=== PATIENT | male | born 1955 | race Caucasian/White ===

== ENCOUNTER → 2024-05-12 14:54 | Outpatient (REF) | payer MEDICARE, SELFPAY | LOC: RAD 14:54 | PROVIDERS: ATTENDING PHYSICIAN Internal Medicine Cardiovascular Disease; FAMILY PHYSICIAN Family Medicine | DX: I71.21 Aneurysm of the ascending aorta, without rupture (principal) | CPT/HCPCS: 71250 ==

== ENCOUNTER → 2024-06-07 08:07 | Outpatient (REF) | payer MEDICARE, SELFPAY | LOC: RCS 08:07 | PROVIDERS: ATTENDING PHYSICIAN Internal Medicine Cardiovascular Disease; FAMILY PHYSICIAN Family Medicine | DX: I71.21 Aneurysm of the ascending aorta, without rupture (principal); I35.1 Nonrheumatic aortic (valve) insufficiency; I35.0 Nonrheumatic aortic (valve) stenosis; I10 Essential (primary) hypertension | CPT/HCPCS: 93306 ==

== ENCOUNTER → 2024-06-25 10:35 | Outpatient (REF) | payer MEDICARE, SELFPAY | LOC: RAD 10:35 | PROVIDERS: ATTENDING PHYSICIAN Internal Medicine Cardiovascular Disease; FAMILY PHYSICIAN Family Medicine | DX: I71.21 Aneurysm of the ascending aorta, without rupture (principal); I70.0 Atherosclerosis of aorta; R09.89 Other specified symptoms and signs involving the circulatory and respiratory systems | CPT/HCPCS: 76770 ==

== ENCOUNTER → 2024-09-08 06:17 | Day surgery (SDC) | payer MEDICARE, SELFPAY ==
[2024-09-08 09:27] LABS: Glucose - Point of Care 126 mg/dl (70-99)
== END ==
LOC: GI 06:17
PROVIDERS: ATTENDING PHYSICIAN Internal Medicine Gastroenterology
DX: Z12.11 Encounter for screening for malignant neoplasm of colon (principal); K64.8 Other hemorrhoids; K57.30 Diverticulosis of large intestine without perforation or abscess without bleeding; D12.3 Benign neoplasm of transverse colon
CPT/HCPCS: 45380; 88305; 82962

== ENCOUNTER → 2024-09-09 12:16 | Outpatient (REF) | payer MEDICARE, SELFPAY | LOC: RAD 12:16 | PROVIDERS: ATTENDING PHYSICIAN Family Medicine | DX: M25.511 Pain in right shoulder (principal) | CPT/HCPCS: 73030 ==

== ENCOUNTER 2024-10-21 15:03 | Outpatient (RCR) | payer MEDICARE, SELFPAY | END 2024-10-21 23:59 | disposition home or self-care (01) | LOC: RPT 15:03 | PROVIDERS: ATTENDING PHYSICIAN Orthopaedic Surgery Hand Surgery; FAMILY PHYSICIAN Family Medicine | DX: S46.811D Strain of other muscles, fascia and tendons at shoulder and upper arm level, right arm, subsequent encounter (principal); Z83.6 Family history of other diseases of the respiratory system | CPT/HCPCS: 97010; 97110; 97140; 97162 ==

== ENCOUNTER 2024-11-20 09:01 | Outpatient (RCR) | payer MEDICARE, SELFPAY | END 2024-11-20 23:59 | disposition home or self-care (01) | LOC: RPT 09:01 | PROVIDERS: ATTENDING PHYSICIAN Orthopaedic Surgery Hand Surgery; FAMILY PHYSICIAN Family Medicine | DX: S46.811D Strain of other muscles, fascia and tendons at shoulder and upper arm level, right arm, subsequent encounter (principal); Z73.6 Limitation of activities due to disability; Z83.6 Family history of other diseases of the respiratory system; M62.81 Muscle weakness (generalized); W01.0XXD Fall on same level from slipping, tripping and stumbling without subsequent striking against object, subsequent encounter | CPT/HCPCS: 97010; 97110; 97140 ==

== ENCOUNTER 2024-12-12 09:06 | Outpatient (RCR) | payer MEDICARE, SELFPAY | END 2024-12-12 23:59 | disposition home or self-care (01) | LOC: RPT 09:06 | PROVIDERS: ATTENDING PHYSICIAN Orthopaedic Surgery Hand Surgery; FAMILY PHYSICIAN Family Medicine | DX: S46.811D Strain of other muscles, fascia and tendons at shoulder and upper arm level, right arm, subsequent encounter (principal); Z73.6 Limitation of activities due to disability; M62.81 Muscle weakness (generalized); W01.0XXD Fall on same level from slipping, tripping and stumbling without subsequent striking against object, subsequent encounter; W18.39XD Other fall on same level, subsequent encounter; Z83.6 Family history of other diseases of the respiratory system | CPT/HCPCS: 97010; 97110; 97140 ==

== ENCOUNTER 2025-01-06 09:17 | Outpatient (RCR) | payer MEDICARE, SELFPAY | END 2025-01-06 09:59 | disposition home or self-care (01) | LOC: RPT 09:17 | PROVIDERS: ATTENDING PHYSICIAN Orthopaedic Surgery Hand Surgery; FAMILY PHYSICIAN Family Medicine | DX: S46.811D Strain of other muscles, fascia and tendons at shoulder and upper arm level, right arm, subsequent encounter (principal); M62.81 Muscle weakness (generalized); W18.39XD Other fall on same level, subsequent encounter; Z73.6 Limitation of activities due to disability; W01.0XXD Fall on same level from slipping, tripping and stumbling without subsequent striking against object, subsequent encounter; Z83.6 Family history of other diseases of the respiratory system | CPT/HCPCS: 97110; 97112; 97140 ==

== ENCOUNTER → 2025-05-01 11:26 | Outpatient (REF) | payer MEDICARE, SELFPAY | LOC: RAD 11:26 | PROVIDERS: ATTENDING PHYSICIAN Physician Assistant Medical; FAMILY PHYSICIAN Family Medicine; REFERRING PHYSICIAN Internal Medicine Cardiovascular Disease | DX: R05.9 Cough, unspecified (principal) | CPT/HCPCS: 71046 ==

== ENCOUNTER → 2025-05-20 15:40 | Outpatient (REF) | payer MEDICARE, SELFPAY | LOC: RAD 15:40 | PROVIDERS: ATTENDING PHYSICIAN Internal Medicine Cardiovascular Disease; FAMILY PHYSICIAN Family Medicine | DX: I35.1 Nonrheumatic aortic (valve) insufficiency (principal) | CPT/HCPCS: 71250 ==